=== PATIENT | male | born 1985 | race Caucasian/White ===

== ENCOUNTER 2017-01-05 16:59 | Emergency (ER) | payer SELFPAY ==
[~2017-01-05] VITALS: Ht 172.7 cm; Wt 82.0 kg
[2017-01-05 17:00] VITALS: BP 148/89; PULSE 67; RESP 15; TEMP 98.4; O2SAT 99
[2017-01-05] MEDS ORDERED: SODIUM CHLOR 0.9% 1000 ML INJ 1,000 ML IV SCH (17:16)
[2017-01-05 17:21] VITALS: BP 132/73; PULSE 60; RESP 18; TEMP 98.4; O2SAT 97
[2017-01-05] MEDS ORDERED: SODIUM CHLORIDE 0.9% FLUSH 10 ML FLUSH IV FLUSH PRN (17:30)
--- NOTE | 2017-01-05 18:08 | PD ---
HPI Chief Complaint: GI Complaint Time Seen by Provider: 18:06 Travel History International Travel<30 days: No Contact w/Intl Traveler<30days: No Traveled to known affect area: No History of Present Illness HPI Patient complains of bright blood per rectum ongoing times one week. Patient reports associated feeling tired. Patient states feels it got worse today. Denies any pain with this other than when he wipes without radiation. Patient reports similar in the past 3 or 4 years ago was seen here and evaluated but never followed up. Patient denies abdominal pain, fevers, back pain, loss or change in bladder, melena, nausea, vomiting, chest pain, or shortness of breath. Patient denies anything making this better or worse. PFSH Past Medical History Medical History: Denies Significant Hx Tetanus Vaccination: Unknown Social History Alcohol Use: Yes (occ) Tobacco Use: Yes (vape states non-tobacco) Substance Use: No Allergies-Medications (Allergen,Severity, Reaction): Coded Allergies: No Known Allergies (Unverified , 01/05/17) Reported Meds & Prescriptions Reported Meds & Active Scripts Active No Active Prescriptions or Reported Medications Review of Systems Except as stated in HPI: all other systems reviewed are Neg Physical Exam Narrative GENERAL: Well-developed, well nourished, in no acute distress, and non-ill appearing. SKIN: Focused skin assessment warm and dry. HEAD: Atraumatic. Normocephalic. EYES: Pupils equal and round. EOMI. No scleral icterus. No injection or drainage. ENT: No nasal bleeding or discharge. Mucous membranes pink and moist. NECK: Trachea midline. No JVD. Supple. No nuclear rigidity. CARDIOVASCULAR: Regular rate and rhythm. No murmur appreciated. RESPIRATORY: No accessory muscle use. No respiratory distress. Clear to auscultation. Breath sounds equal bilaterally. GASTROINTESTINAL: Abdomen soft, non-tender, nondistended, and no guarding. Hepatic and splenic margins not palpable. Normal bowel sounds 4. No pulsatile mass. Small external hemorrhoid noted at approximately 6 o'clock position. No fistulas are active bleeding noted. Exam was performed presence of staff Farrukh Laguerre at all times. MUSCULOSKELETAL: No obvious deformities. No clubbing. No cyanosis. No edema. Full range of motion. NEUROLOGICAL: Awake and alert. No obvious cranial nerve deficits. Motor grossly within normal limits. Normal speech. PSYCHIATRIC: Appropriate mood and affect; insight and judgment normal. Data Data Last Documented VS Vital Signs Date Time Temp Pulse Resp B/P Pulse Ox O2 Delivery O2 Flow Rate FiO2 01/05/17 19:13 66 18 128/71 99 Room Air 01/05/17 17:21 98.4 Orders Complete Blood Count With Diff (01/05/17 17:16) Comprehensive Metabolic Panel (01/05/17 17:16) Lipase (01/05/17 17:16) Prothrombin Time / Inr (Pt) (01/05/17 17:16) Act Partial Throm Time (Ptt) (01/05/17 17:16) Iv Access Insert/Monitor (01/05/17 17:16) Ecg Monitoring (01/05/17 17:16) Oximetry (01/05/17 17:16) Sodium Chlor 0.9% 1000 Ml Inj (Ns 1000 M (01/05/17 17:16) Sodium Chloride 0.9% Flush (Ns Flush) (01/05/17 17:30) Mandatory Outpatient Referral (01/05/17 19:01) Labs Laboratory Tests Test 01/05/17 17:55 White Blood Count 9.1 TH/MM3 Red Blood Count 5.50 MIL/MM3 Hemoglobin 16.0 GM/DL Hematocrit 45.7 % Mean Corpuscular Volume 83.2 FL Mean Corpuscular Hemoglobin 29.0 PG Mean Corpuscular Hemoglobin 34.9 % Concent Red Cell Distribution Width 13.6 % Platelet Count 209 TH/MM3 Mean Platelet Volume 8.0 FL Neutrophils (%) (Auto) 69.1 % Lymphocytes (%) (Auto) 21.5 % Monocytes (%) (Auto) 7.3 % Eosinophils (%) (Auto) 1.5 % Basophils (%) (Auto) 0.6 % Neutrophils # (Auto) 6.3 TH/MM3 Lymphocytes # (Auto) 2.0 TH/MM3 Monocytes # (Auto) 0.7 TH/MM3 Eosinophils # (Auto) 0.1 TH/MM3 Basophils # (Auto) 0.1 TH/MM3 CBC Comment DIFF FINAL Differential Comment Prothrombin Time 10.2 SEC Prothromb Time International 0.9 RATIO Ratio Activated Partial 27.3 SEC Thromboplast Time Sodium Level 138 MEQ/L Potassium Level 4.1 MEQ/L Chloride Level 105 MEQ/L Carbon Dioxide Level 28.5 MEQ/L Anion Gap 5 MEQ/L Blood Urea Nitrogen 8 MG/DL Creatinine 0.96 MG/DL Estimat Glomerular Filtration 93 ML/MIN Rate Random Glucose 87 MG/DL Calcium Level 8.9 MG/DL Total Bilirubin 1.3 MG/DL Aspartate Amino Transf 19 U/L (AST/SGOT) Alanine Aminotransferase 25 U/L (ALT/SGPT) Alkaline Phosphatase 67 U/L Total Protein 8.3 GM/DL Albumin 4.4 GM/DL Lipase 177 U/L MDM Medical Decision Making Medical Screen Exam Complete: Yes Emergency Medical Condition: Yes Differential Diagnosis GI bleed, anemia, hemorrhoids, hematochezia, other Narrative Course The patient appears stable and is in no distress. The patient is healthy and has no significant co-morbidities. There is no evidence of significant blood loss by history, exam, and evaluation. The patient therefore can be safely discharged home. Warnings were discussed with the patient such as, but not limited to, worsening of condition, increased bleeding, abdominal pains, dizzy with standing, or do passing out. The patient was also instructed to return as needed. The patient was instructed to follow up with gastroenterology. The patient agreed with plan of care and management. Patient in no obvious distress upon re-evaluation. All pertinent laboratory result(s) discussed with patient. Discussed patient with Dr. Villanueva prior to discharge, who is in agreement plan of care and disposition. Mandatory referral placed to GI. Any questions/concerns in reference to patient diagnosis /condition discussed and clarified prior to patient's discharge. Reinforced sheer importance of close follow up with patient's primary physician or primary care clinic and GI. Instructed patient to return to ED immediately, if symptoms return/worsen. Pt showed understanding of above instructions. Further instructions and recommendations were detailed in discharge paperwork. Pt ambulated without difficulty out of ED at discharge. Diagnosis Primary Impression: Bright red blood per rectum Patient Instructions: General Instructions, Rectal Bleeding (ED) Additional Instructions: Follow-up with your primary care physician or GI in 3-5 days for reevaluation. Use [id number] stool softeners. Follow instructed on the packaging. Do not strain when having a bowel movement. Drink plenty of non-caffeinated and nonalcoholic fluids. Return to the emergency department if symptoms get worse. Scripts No Active Prescriptions or Reported Meds Disposition: 01 DISCHARGE HOME Condition: Stable Lauro Schmitt Jan 05, 2017 18:08
[2017-01-05 18:24] LABS: AUTOMATED NEUTROPHIL # 6.3 TH/MM3 (1.8-7.7); BASOPHIL # 0.1 TH/MM3 (0-0.2); BASOPHIL % 0.6 % (0.0-2.0); EOSINOPHIL # 0.1 TH/MM3 (0-0.4); EOSINOPHIL % 1.5 % (0.0-4.0); HEMATOCRIT 45.7 % (39.0-51.0); HEMO FLAGS DIFF FINAL; LYMPH % 21.5 % (9.0-44.0); MEAN CELL VOLUME 83.2 FL (80.0-100.0); MEAN CORPUSCULAR HGB CONC 34.9 % (32.0-36.0); MONO % 7.3 % (0.0-8.0); NEUT % 69.1 % (16.0-70.0); PLATELET COUNT 209 TH/MM3 (150-450); RED CELL DISTRIBUTION WIDTH 13.6 % (11.6-17.2); WHITE BLOOD COUNT 9.1 TH/MM3 (4.0-11.0)
[2017-01-05 18:32] LABS: APTT (PATIENT) 27.3 SEC (24.3-30.1); INTERNATIONAL NORMALIZED RATIO 0.9 RATIO; PROTHROMBIN TIME - PATIENT 10.2 SEC (9.8-11.6)
[2017-01-05 18:35] LABS: ANION GAP 5 MEQ/L (5-15); AST (GOT) 19 U/L (15-37); BICARBONATE 28.5 MEQ/L (21.0-32.0); BLOOD UREA NITROGEN 8 MG/DL (7-18); CHLORIDE 105 MEQ/L (98-107); GLOMERULAR FILTRATION RATE 93 ML/MIN (>89); POTASSIUM 4.1 MEQ/L (3.5-5.1); SODIUM (NA) 138 MEQ/L (136-145)
[2017-01-05 18:40] LABS: ALKALINE PHOSPHATASE 67 U/L (45-117); ALT (GPT) 25 U/L (12-78); TOTAL BILIRUBIN ADULT 1.3 MG/DL (0.2-1.0)
[2017-01-05 19:13] VITALS: BP 128/71; PULSE 66; RESP 18; O2SAT 99
== END 2017-01-05 19:34 | disposition home or self-care (01) ==
LOC: NEPC 16:59
DX: K62.5 Hemorrhage of anus and rectum (principal); F17.290 Nicotine dependence, other tobacco product, uncomplicated
CPT/HCPCS: 80053; 83690; 85025; 85610; 85730; 96360; 99284; J7030

== ENCOUNTER 2017-05-24 21:26 | Observation (INO) | payer SELFPAY ==
[2017-05-24 21:34] VITALS: BP 122/76; PULSE 82; RESP 20; TEMP 98.6; O2SAT 98
[2017-05-24] MEDS ORDERED: SODIUM CHLOR 0.9% 1000 ML INJ 1,000 ML IV ONE (22:30)
[2017-05-24] MEDS ORDERED: ONDANSETRON HCL 4 MG/2 ML VIAL IV PUSH ONE (22:30)
[2017-05-24] MEDS ORDERED: PANTOPRAZOLE SODIUM 40 MG VIAL IV PUSH ONE (22:30)
[2017-05-24 22:47] LABS: AUTOMATED NEUTROPHIL # 4.8 TH/MM3 (1.8-7.7); BASOPHIL # 0.1 TH/MM3 (0-0.2); BASOPHIL % 0.7 % (0.0-2.0); EOSINOPHIL # 0.1 TH/MM3 (0-0.4); EOSINOPHIL % 1.3 % (0.0-4.0); HEMATOCRIT 42.5 % (39.0-51.0); HEMOGLOBIN 15.4 GM/DL (13.0-17.0); LYMPH % 32.3 % (9.0-44.0); LYMPHOCYTE # 2.6 TH/MM3 (1.0-4.8); MEAN CELL VOLUME 82.7 FL (80.0-100.0); MEAN CORPUSCULAR HEMOGLOBIN 29.9 PG (27.0-34.0); MEAN PLATELET VOLUME 7.7 FL (7.0-11.0); MONOCYTE # 0.5 TH/MM3 (0-0.9); NEUT % 59.7 % (16.0-70.0); PLATELET COUNT 228 TH/MM3 (150-450); RED BLOOD COUNT 5.14 MIL/MM3 (4.50-5.90); RED CELL DISTRIBUTION WIDTH 13.1 % (11.6-17.2)
[2017-05-24 22:50] LABS: MEAN CORPUSCULAR HGB CONC 36.2 % (32.0-36.0)
[2017-05-24 23:03] LABS: AST (GOT) 11 U/L (15-37); BICARBONATE 26.3 MEQ/L (21.0-32.0); BLOOD UREA NITROGEN 8 MG/DL (7-18); CALCIUM 8.4 MG/DL (8.5-10.1); CHLORIDE 106 MEQ/L (98-107); CREATININE 0.93 MG/DL (0.60-1.30); GLOMERULAR FILTRATION RATE 95 ML/MIN (>89); GLUCOSE,RANDOM 86 MG/DL (74-106); SODIUM (NA) 142 MEQ/L (136-145)
[2017-05-24 23:04] LABS: ALT (GPT) 18 U/L (12-78)
[2017-05-24 23:06] LABS: ALKALINE PHOSPHATASE 64 U/L (45-117); TOTAL BILIRUBIN ADULT 0.9 MG/DL (0.2-1.0); TOTAL PROTEIN 7.3 GM/DL (6.4-8.2)
[2017-05-24] MEDS ORDERED: MECLIZINE HCL 25 MG TAB PO ONE (23:15)
[2017-05-24 23:20] VITALS: BP_SYST 116; BP_SYST 123; BP_SYST 126; BP_SYST 132; BP_DIAS 65; BP_DIAS 74; BP_DIAS 77; BP_DIAS 80; PULSE 79; RESP 18; RESP 20; O2SAT 99
[2017-05-24 23:23] LABS: TROPONIN I LESS THAN 0.02 NG/ML (0.02-0.05)
--- NOTE | 2017-05-24 23:23 | PD ---
HPI Chief Complaint: GI Complaint Time Seen by Provider: 21:35 Travel History International Travel<30 days: No Contact w/Intl Traveler<30days: No Traveled to known affect area: No History of Present Illness HPI Patient is a 32-year-old male who was in [facility] he felt strange in his head and in his chest during the service he suddenly became very nauseous and started to vomit he is brought in by paramedics main complaint is nausea vomiting on my evaluation he describes how he had a headache and his chest hurt first and then the nausea came he also describes a spinning sensation worse with head movement. He denies any sore throat or upper respiratory infection like symptoms and he denies any earache. He has no cardiac history and he denies ingestion of any substances that could be causing any cardiac arrhythmias he is given a IV with liter fluid Protonix and Zofran and he has an EKG done by the nurse which shows a intermittent junctional rhythm at a rate of 55 his P waves dropout and then they return he is not orthostatic is not hypotensive and again he has no cardiac history this complaint was nausea vomiting after chest pain and headache and a spinning sensation nothing has relieved his symptoms movement of his head seems to exacerbate his symptoms PFSH Past Medical History Tetanus Vaccination: > 5 Years Influenza Vaccination: No Social History Alcohol Use: Yes (occ) Tobacco Use: Yes (vape states non-tobacco) Substance Use: No Allergies-Medications (Allergen,Severity, Reaction): Coded Allergies: No Known Allergies (Unverified Allergy, Unknown, 05/25/17) Reported Meds & Prescriptions Reported Meds & Active Scripts Active No Active Prescriptions or Reported Medications Review of Systems Except as stated in HPI: all other systems reviewed are Neg General / Constitutional: Positive: Fever, Chills HENT: Positive: Headaches Cardiovascular: Positive: Chest Pain or Discomfort Gastrointestinal: Positive: Nausea, Vomiting, Abdominal Pain Neurologic: Positive: Dizziness Physical Exam Narrative GENERAL: Patient appears to be very nauseous during my exam he is not diaphoretic though he is vomiting when I enter the room SKIN: Warm and dry. HEAD: Atraumatic. Normocephalic. EYES: Pupils equal and round. No scleral icterus. No injection or drainage. Positive for nystagmus ENT: No nasal bleeding or discharge. Mucous membranes pink and moist. NECK: Trachea midline. No JVD. CARDIOVASCULAR: Regular rate and rhythm. Bradycardic-- EKG shows junctional rhythm and then back into sinus at a rate of 55 RESPIRATORY: No accessory muscle use. Clear to auscultation. Breath sounds equal bilaterally. GASTROINTESTINAL: Abdomen soft, non-tender, nondistended. Hepatic and splenic margins not palpable. MUSCULOSKELETAL: Extremities without clubbing, cyanosis, or edema. No obvious deformities. NEUROLOGICAL: Awake and alert. No obvious cranial nerve deficits. Motor grossly within normal limits. Five out of 5 muscle strength in the arms and legs. Normal speech. PSYCHIATRIC: Appropriate mood and affect; insight and judgment normal. Data Data Last Documented VS Vital Signs Date Time Temp Pulse Resp B/P (MAP) Pulse Ox O2 Delivery O2 Flow Rate FiO2 05/25/17 00:52 97.6 57 16 102/57 (72) 96 Room Air Orders Orders Complete Blood Count With Diff (05/24/17 22:20) Comprehensive Metabolic Panel (05/24/17 22:20) Pantoprazole Inj (Protonix Inj) (05/24/17 22:30) Ondansetron Inj (Zofran Inj) (05/24/17 22:30) Sodium Chlor 0.9% 1000 Ml Inj (Ns 1000 M (05/24/17 22:30) Drug Screen, Random Urine (05/24/17 23:03) Orthostatic Vital Signs (05/24/17 23:03) Troponin I (05/24/17 22:20) Meclizine (Antivert) (05/24/17 23:15) Metoclopramide Inj (Reglan Inj) (05/24/17 23:30) Chest, Pa & Lat (05/25/17 ) Place In Observation (05/25/17 ) Vital Signs (Adult) Q4H (05/25/17 01:15) Activity Oob With Assistance (05/25/17 01:15) Diet Heart Healthy (05/25/17 Breakfast) Sodium Chloride 0.9% Flush (Ns Flush) (05/25/17 01:15) Sodium Chloride 0.9% Flush (Ns Flush) (05/25/17 09:00) Acetaminophen (Tylenol) (05/25/17 01:15) Ondansetron Inj (Zofran Inj) (05/25/17 01:15) Basic Metabolic Panel (Bmp) (05/26/17 06:00) Complete Blood Count With Diff (05/26/17 06:00) Creatine Kinase (Cpk) (05/25/17 04:20) Creatine Kinase (Cpk) (05/25/17 10:20) Troponin I (05/25/17 04:20) Troponin I (05/25/17 10:20) Electrocardiogram (05/25/17 04:20) Electrocardiogram (05/25/17 10:20) Naloxone Inj (Narcan Inj) (05/25/17 01:15) Docusate Sodium-Senna (Roxana-Colace) (05/25/17 09:00) Magnesium Hydroxide Liq (Milk Of Magnesi (05/25/17 01:15) Sennosides (Senokot) (05/25/17 01:15) Bisacodyl Supp (Dulcolax Supp) (05/25/17 01:15) Lactulose Liq (Lactulose Liq) (05/25/17 01:15) Admit Order (Ed Use Only) (05/25/17 01:44) CKMB (05/25/17 03:59) CKMB% (05/25/17 03:59) CKMB (05/25/17 10:33) CKMB% (05/25/17 10:33) Labs Laboratory Tests Test 05/24/17 22:20 05/25/17 00:12 White Blood Count 8.0 TH/MM3 Red Blood Count 5.14 MIL/MM3 Hemoglobin 15.4 GM/DL Hematocrit 42.5 % Mean Corpuscular Volume 82.7 FL Mean Corpuscular Hemoglobin 29.9 PG Mean Corpuscular Hemoglobin Concent 36.2 % Red Cell Distribution Width 13.1 % Platelet Count 228 TH/MM3 Mean Platelet Volume 7.7 FL Neutrophils (%) (Auto) 59.7 % Lymphocytes (%) (Auto) 32.3 % Monocytes (%) (Auto) 6.0 % Eosinophils (%) (Auto) 1.3 % Basophils (%) (Auto) 0.7 % Neutrophils # (Auto) 4.8 TH/MM3 Lymphocytes # (Auto) 2.6 TH/MM3 Monocytes # (Auto) 0.5 TH/MM3 Eosinophils # (Auto) 0.1 TH/MM3 Basophils # (Auto) 0.1 TH/MM3 CBC Comment AUTO DIFF Differential Comment AUTO DIFF CONFIRMED Hypersegmented Polys 3+ Platelet Estimate NORMAL Platelet Morphology Comment NORMAL Red Cell Morphology Comment NORMAL Blood Urea Nitrogen 8 MG/DL Creatinine 0.93 MG/DL Random Glucose 86 MG/DL Total Protein 7.3 GM/DL Albumin 4.0 GM/DL Calcium Level 8.4 MG/DL Alkaline Phosphatase 64 U/L Aspartate Amino Transf (AST/SGOT) 11 U/L Alanine Aminotransferase (ALT/SGPT) 18 U/L Total Bilirubin 0.9 MG/DL Sodium Level 142 MEQ/L Potassium Level 3.5 MEQ/L Chloride Level 106 MEQ/L Carbon Dioxide Level 26.3 MEQ/L Anion Gap 10 MEQ/L Estimat Glomerular Filtration Rate 95 ML/MIN Troponin I LESS THAN 0.02 NG/ML Urine Opiates Screen NEG Urine Barbiturates Screen NEG Urine Amphetamines Screen NEG Urine Benzodiazepines Screen NEG Urine Cocaine Screen NEG Urine Cannabinoids Screen NEG MDM Medical Decision Making Medical Screen Exam Complete: Yes Emergency Medical Condition: Yes Differential Diagnosis Patient has vertigo possible benign positional vertigo secondary to in the imbalance in the lymph in his semicircle canals of his ears versus a virus versus a cardiac ischemia causing a hypotensive dizziness versus gastroenteritis with excessive vomiting stimulating his vagus nerve bradycardia versus other Narrative Course Asians EKG is rate of 55 it appears to be junctional and then has normal sinus rhythm he is not have any episodes of hypotension however she does have a dizzy feeling spinning sensation feeling and nystagmus is elicited on his ocular exam given the liter fluid and Zofran Protonix and Reglan and he is still feeling nauseous labs are sent fluid resuscitate and he will be evaluated for possible admission Diagnosis Primary Impression: Dizziness Additional Impression: Bradycardia Admitting Information Admitting Physician Requests: Observation Scripts No Active Prescriptions or Reported Meds Sami Salgado MD May 24, 2017 23:23
[2017-05-24 23:28] LABS: HYPERSEGMENTED POLYS 3+ (NORMAL)
[2017-05-24] MEDS ORDERED: METOCLOPRAMIDE INJ 10 MG in SODIUM CHLORIDE 0.9% INJ 50 ML IV ONE (23:30)
[2017-05-25] VITALS (24 sets, daily range): BP systolic 102–138; BP diastolic 57–76; PULSE 46–97; RESP 14–16; TEMP 97.5–98.8; O2SAT 95–100
--- NOTE | 2017-05-25 00:57 | RADRPT ---
EXAM DATE/TIME: 05/25/2017 00:18 [place] COMPARISON: No previous studies available for comparison. INDICATIONS : Nausea and vomiting x 1 day MEDICAL HISTORY : None. SURGICAL HISTORY : ACL Repair, Right ENCOUNTER: Initial ACUITY: 1 day PAIN SCORE: 7/10 LOCATION: Bilateral chest FINDINGS: PA and lateral views of the chest. The lungs are clear. Cardiomediastinal silhouette within normal li mits. No evidence of pleural effusion or pneumothorax. CONCLUSION: No acute cardiopulmonary disease identified. Adalberto Diallo MD on May 25, 2017 at 0:55 Board Certified Radiologist. This report was verified electronically.
[2017-05-25] MEDS ORDERED: ONDANSETRON HCL 4 MG/2 ML VIAL IVP PRN (01:15)
[2017-05-25] MEDS ORDERED: ACETAMINOPHEN 325 MG TAB PO PRN (01:15)
[2017-05-25] MEDS ORDERED: SENNOSIDES 8.6 MG TAB PO PRN (01:15)
[2017-05-25] MEDS ORDERED: SODIUM CHLORIDE 0.9% FLUSH 10 ML FLUSH IV FLUSH PRN (01:15)
[2017-05-25] MEDS ORDERED: LACTULOSE SYRUP 20 GM/30 ML CUP PO PRN (01:15)
[2017-05-25] MEDS ORDERED: MAGNESIUM HYDROXIDE SUSP 30 ML CUP PO PRN (01:15)
[2017-05-25] MEDS ORDERED: BISACODYL 10 MG SUPP RECTAL PRN (01:15)
[2017-05-25] MEDS ORDERED: NALOXONE HCL 0.4 MG/ML AMP IV PUSH PRN (01:15)
[2017-05-25 05:57] LABS: TROPONIN I LESS THAN 0.02 NG/ML (0.02-0.05)
[2017-05-25] MEDS: DOCUSATE SODIUM 50 MG/SENNA 8.6 MG TAB PO SCH ×2 (09:34→21:00)
[2017-05-25] MEDS: SODIUM CHLORIDE 0.9% FLUSH 10 ML FLUSH IV FLUSH SCH ×2 (09:35→21:00)
--- NOTE | 2017-05-25 10:42 | PD.CONS ---
HPI Consult Requested By Primary Care Physician No Primary Care Physician History of Present Illness 32-year-old male brought into the ER with nauseous and vomiting consulted to Cardiology due to bradycardia. Symptoms started [place] being in [place]. Nausea was associated with vertigo. He has no cardiac history and he denies ingestion of any substances that could be causing any cardiac arrhythmias, very active at baseline. ER EKG shows sinus bradycardia, no acute ST changes or prolonged intervals. Review of Systems Consitutional: DENIES: Fatigue, Fever, Chills, Weight gain, Weight loss Eyes: DENIES: Amaurosis Fugax, Change in vision HEENT: COMPLAINS OF: Lightheadedness, DENIES: Change in hearing Respiratory: DENIES: See HPI, Cough, Snoring, Shortness of breath, Wheezing, Sputum production Cardiovascular: DENIES: See HPI, Chest pain, Palpitations, Syncope, Tachycardia Gastrointestinal: COMPLAINS OF: Nausea, Vomiting, DENIES: Change in bowel habits, Reflux, Bloody stools, Melena Genitourinary: DENIES: Urinary incontinence, Difficulty voiding Integumentary: DENIES: Rash Musculoskeletal: DENIES: Joint pain, Muscle pain, Limited range of motion, Back pain Psychiatric: DENIES: Anxiety, Depression, Sleep disturbances Hematologic: DENIES: Bruising tendencies, Bleeding tendencies Past Family Social History Allergies: Coded Allergies: No Known Allergies (Unverified Allergy, Unknown, 05/25/17) Past Medical History None Past Surgical History None Reported Medications Reported Meds & Active Scripts Active No Active Prescriptions or Reported Medications Active Ordered Medications Current Medications Medications (Trade) Dose Ordered Sig/[place] Route Start Time Stop Time Status Last Admin (NS Flush) 2 ml UNSCH PRN IV FLUSH 05/25/17 01:15 (NS Flush) 2 ml BID IV FLUSH 05/25/17 09:00 05/25/17 09:35 (Tylenol) 650 mg Q4H PRN PO 05/25/17 01:15 05/25/17 03:22 (Zofran Inj) 4 mg Q6H PRN IVP 05/25/17 01:15 (Narcan Inj) 0.4 mg UNSCH PRN IV PUSH 05/25/17 01:15 (Roxana-Colace) 1 tab BID PO 05/25/17 09:00 05/25/17 09:34 (Milk Of Magnesia Liq) 30 ml Q12H PRN PO 05/25/17 01:15 (Senokot) 17.2 mg Q12H PRN PO 05/25/17 01:15 (Dulcolax Supp) 10 mg DAILY PRN RECTAL 05/25/17 01:15 (Lactulose Liq) 30 ml DAILY PRN PO 05/25/17 01:15 (Pneumovax-23 Inj) 25 mcg ONCE ONCE IM 05/26/17 10:00 05/26/17 10:01 (Flu (Quadrivalent) Vaccine Inj) 0.5 ml ONCE ONCE IM 05/26/17 10:00 05/26/17 10:01 Family History Father- Heart murmur Social History No illicit drug use No Tobacco use No Alcohol use Physical Exam Vital Signs Vital Signs Date Time Temp Pulse Resp B/P (MAP) Pulse Ox O2 Delivery O2 Flow Rate FiO2 05/25/17 09:00 85 05/25/17 08:00 87 05/25/17 08:00 97.9 87 16 122/76 (91) 96 05/25/17 07:00 67 05/25/17 06:00 55 05/25/17 05:00 49 05/25/17 04:00 54 05/25/17 03:06 46 05/25/17 03:00 68 05/25/17 03:00 97.5 75 16 119/67 (84) 96 05/25/17 02:38 52 14 110/63 (79) 100 Room Air 05/25/17 00:52 97.6 57 16 102/57 (72) 96 Room Air 05/24/17 23:20 51 18 116/65 (82) 77 20 123/74 (90) 74 20 126/77 (93) 05/24/17 23:20 79 20 132/80 (97) 99 Room Air 05/24/17 21:34 98.6 82 20 122/76 (91) 98 Laboratory Laboratory Tests Test 05/24/17 22:20 05/25/17 00:12 05/25/17 03:59 White Blood Count 8.0 Red Blood Count 5.14 Hemoglobin 15.4 Hematocrit 42.5 Mean Corpuscular Volume 82.7 Mean Corpuscular Hemoglobin 29.9 Mean Corpuscular Hemoglobin Concent 36.2 Red Cell Distribution Width 13.1 Platelet Count 228 Mean Platelet Volume 7.7 Neutrophils (%) (Auto) 59.7 Lymphocytes (%) (Auto) 32.3 Monocytes (%) (Auto) 6.0 Eosinophils (%) (Auto) 1.3 Basophils (%) (Auto) 0.7 Neutrophils # (Auto) 4.8 Lymphocytes # (Auto) 2.6 Monocytes # (Auto) 0.5 Eosinophils # (Auto) 0.1 Basophils # (Auto) 0.1 CBC Comment AUTO DIFF Differential Comment AUTO DIFF CONFIRMED Hypersegmented Polys 3+ Platelet Estimate NORMAL Platelet Morphology Comment NORMAL Red Cell Morphology Comment NORMAL Blood Urea Nitrogen 8 Creatinine 0.93 Random Glucose 86 Total Protein 7.3 Albumin 4.0 Calcium Level 8.4 Alkaline Phosphatase 64 Aspartate Amino Transf (AST/SGOT) 11 Alanine Aminotransferase (ALT/SGPT) 18 Total Bilirubin 0.9 Sodium Level 142 Potassium Level 3.5 Chloride Level 106 Carbon Dioxide Level 26.3 Anion Gap 10 Estimat Glomerular Filtration Rate 95 Troponin I LESS THAN 0.02 LESS THAN 0.02 Urine Opiates Screen NEG Urine Barbiturates Screen NEG Urine Amphetamines Screen NEG Urine Benzodiazepines Screen NEG Urine Cocaine Screen NEG Urine Cannabinoids Screen NEG Total Creatine Kinase 374 Creatine Kinase MB 1.1 Creatine Kinase MB % 0.3 Result Diagram: 05/24/17221905/24/172219 Assessment and Plan Problem List: (1) Bradycardia ICD Codes: R00.1 - Bradycardia, unspecified Status: Acute Plan: 32 y/o M with no cardiac medical hx consulted with bradycardia in the setting of nausea, vomiting and dizziness. ?Vasovagal. EKG shows sinus bradycardia and no evidence of tachy or bradyarrhythmias, AV blocks. Cardiac enzymes negative and toxicology screen unremarkable. Currently reports dizziness and headache NO CV complaints. EKG repeated by la Sinus Rhythm, Normal. Recommendations: 1.Cont medical management per primary team 2. F/U Echocardiogram 3. 24Hr Holter upon discharge 4. Avoid electrolytes abnormalities 5. Cont telemetry monitoring Thank you for the opportunity to participate in the care of this patient Will be available on a PRN basis for an questions or concerns. (2) Bright red blood per rectum ICD Codes: K62.5 - Hemorrhage of anus and rectum Status: Acute (3) Dizziness ICD Codes: R42 - Dizziness and giddiness Status: Acute Alejo Ortega MD May 25, 2017 10:42
[2017-05-25 11:43] LABS: TROPONIN I LESS THAN 0.02 NG/ML (0.02-0.05)
--- NOTE | 2017-05-25 11:44 | HHI.HP ---
[facility] No Primary Care Physician Admission Diagnosis bradycardia Diagnoses: (1) Bradycardia (2) Gastroenteritis (3) Gastroenteritis, non-infectious Chief Complaint: Nausea and vomiting Travel History International Travel<30 Days: No Contact w/Intl Traveler <30 Da: No Traveled to Known Affected Are: No History of Present Illness 32 year-old male without any significant past medical history was brought in yesterday from discharge for evaluation of worsening symptoms of nausea and vomiting associated with dizziness, shortness of breath. Patient was noted to have low heart rate however denies any chest pain. States, 3-4 days ago he had episode of diarrhea with noticeable blood which resolved. He also noted decreased appetite 24 hours prior to the onset of emesis. Review of Systems Except as stated in HPI: all other systems reviewed are Neg Past Family Social History Past Medical History No significant PMH Past Surgical History Right knee surgery Cyst removed Reported Medications No currently on any medication Allergies: Coded Allergies: No Known Allergies (Unverified Allergy, Unknown, 05/25/17) Family History Mother from complication from Colon Cancer Father with ESRD on HD; HTN Social History Alcohol Use: Yes (occ) Tobacco Use: Yes (vape states non-tobacco) Substance Use: No Physical Exam Vital Signs Vital Signs Date Time Temp Pulse Resp B/P (MAP) Pulse Ox O2 Delivery O2 Flow Rate FiO2 05/25/17 09:00 85 05/25/17 08:00 87 05/25/17 08:00 97.9 87 16 122/76 (91) 96 05/25/17 07:00 67 05/25/17 06:00 55 05/25/17 05:00 49 05/25/17 04:00 54 05/25/17 03:06 46 05/25/17 03:00 68 05/25/17 03:00 97.5 75 16 119/67 (84) 96 05/25/17 02:38 52 14 110/63 (79) 100 Room Air 05/25/17 00:52 97.6 57 16 102/57 (72) 96 Room Air 05/24/17 23:20 51 18 116/65 (82) 77 20 123/74 (90) 74 20 126/77 (93) 05/24/17 23:20 79 20 132/80 (97) 99 Room Air 05/24/17 21:34 98.6 82 20 122/76 (91) 98 Physical Exam GENERAL: This is a well-nourished, well-developed patient, in no apparent distress. SKIN: No rashes, ecchymoses or lesions. Cool and dry. HEAD: Atraumatic. Normocephalic. No temporal or scalp tenderness. EYES: Pupils equal round and reactive. Extraocular motions intact. No scleral icterus. No injection or drainage. ENT: Nose without bleeding, purulent drainage or septal hematoma. Throat without erythema, tonsillar hypertrophy or exudate. Uvula midline. Airway patent. NECK: Trachea midline. No JVD or lymphadenopathy. Supple, nontender, no meningeal signs. CARDIOVASCULAR: Regular rate and rhythm without murmurs, gallops, or rubs. RESPIRATORY: Clear to auscultation. Breath sounds equal bilaterally. No wheezes , rales, or rhonchi. GASTROINTESTINAL: Abdomen soft, non-tender, nondistended. No hepato-splenomegaly , or palpable masses. No guarding. MUSCULOSKELETAL: Extremities without clubbing, cyanosis, or edema. No joint tenderness, effusion, or edema noted. No calf tenderness. Negative Homans sign bilaterally. NEUROLOGICAL: Awake and alert. Cranial nerves II through XII intact. Motor and sensory grossly within normal limits. Five out of 5 muscle strength in all muscle groups. Normal speech. Laboratory Laboratory Tests Test 05/24/17 22:20 05/25/17 00:12 05/25/17 03:59 05/25/17 10:33 White Blood Count 8.0 Red Blood Count 5.14 Hemoglobin 15.4 Hematocrit 42.5 Mean Corpuscular Volume 82.7 Mean Corpuscular Hemoglobin 29.9 Mean Corpuscular Hemoglobin Concent 36.2 Red Cell Distribution Width 13.1 Platelet Count 228 Mean Platelet Volume 7.7 Neutrophils (%) (Auto) 59.7 Lymphocytes (%) (Auto) 32.3 Monocytes (%) (Auto) 6.0 Eosinophils (%) (Auto) 1.3 Basophils (%) (Auto) 0.7 Neutrophils # (Auto) 4.8 Lymphocytes # (Auto) 2.6 Monocytes # (Auto) 0.5 Eosinophils # (Auto) 0.1 Basophils # (Auto) 0.1 CBC Comment AUTO DIFF Differential Comment AUTO DIFF CONFIRMED Hypersegmented Polys 3+ Platelet Estimate NORMAL Platelet Morphology Comment NORMAL Red Cell Morphology Comment NORMAL Blood Urea Nitrogen 8 Creatinine 0.93 Random Glucose 86 Total Protein 7.3 Albumin 4.0 Calcium Level 8.4 Alkaline Phosphatase 64 Aspartate Amino Transf (AST/SGOT) 11 Alanine Aminotransferase (ALT/SGPT) 18 Total Bilirubin 0.9 Sodium Level 142 Potassium Level 3.5 Chloride Level 106 Carbon Dioxide Level 26.3 Anion Gap 10 Estimat Glomerular Filtration Rate 95 Troponin I LESS THAN 0.02 LESS THAN 0.02 Urine Opiates Screen NEG Urine Barbiturates Screen NEG Urine Amphetamines Screen NEG Urine Benzodiazepines Screen NEG Urine Cocaine Screen NEG Urine Cannabinoids Screen NEG Total Creatine Kinase 374 Creatine Kinase MB 1.1 Creatine Kinase MB % 0.3 Result Diagram: 05/24/17 2220 05/24/17 2220 Imaging Last Impressions Chest X-Ray 05/25/17 0000 Signed Impressions: Service Date/Time: Thursday, May 25, 2017 00:18 - CONCLUSION: No acute cardiopulmonary disease identified. Adalberto Diallo MD Septic Shock Reassessment Septic shock perfusion: reassessment completed Caprini VTE Risk Assessment Caprini VTE Risk Assessment: No/Low Risk (score <= 1) Caprini Risk Assessment Model Point Value = 1 Point Value = 2 Point Value = 3 Point Value = 5 Age 41-60 Minor surgery BMI > 25 kg/m2 Swollen legs Varicose veins or History of unexplained or recurrent spontaneous Oral contraceptives or hormone replacement Sepsis (< 1 month) Serious lung disease, including pneumonia (< 1 month) Abnormal pulmonary function Acute myocardial infarction Congestive heart failure (< 1 month) History of inflammatory bowel disease Medical patient at bed rest Age 61-74 Arthroscopic surgery Major open surgery (> 45 min) Laparoscopic surgery (> 45 min) Malignancy Confined to bed (> 72 hours) Immobilizing plaster cast Central venous access Age >= 75 History of VTE Family history of VTE Factor V Leiden Prothrombin [id number] Lupus anticoagulant Anticardiolipin antibodies Elevated serum homocysteine Heparin-induced thrombocytopenia Other congenital or acquired thrombophilia Stroke (< 1 month) Elective arthroplasty Hip, pelvis, or leg fracture Acute spinal cord injury (< 1 month) Prophylaxis Regimen Total Risk Factor Score Risk Level Prophylaxis Regimen 0-1 Low Early ambulation 2 Moderate Order ONE of the following: *Sequential Compression Device (SCD) *Heparin 5000 units SQ BID 3-4 Higher Order ONE of the following medications: *Heparin 5000 units SQ TID *Enoxaparin/Lovenox 40 mg SQ daily (WT < 150 kg, CrCl > 30 mL/min) *Enoxaparin/Lovenox 30 mg SQ daily (WT < 150 kg, CrCl > 10-29 mL/min) *Enoxaparin/Lovenox 30 mg SQ BID (WT < 150 kg, CrCl > 30 mL/min) AND/OR *Sequential Compression Device (SCD) 5 or more Highest Order ONE of the following medications: *Heparin 5000 units SQ TID (Preferred with Epidurals) *Enoxaparin/Lovenox 40 mg SQ daily (WT < 150 kg, CrCl > 30 mL/min) *Enoxaparin/Lovenox 30 mg SQ daily (WT < 150 kg, CrCl > 10-29 mL/min) *Enoxaparin/Lovenox 30 mg SQ BID (WT < 150 kg, CrCl > 30 mL/min) AND *Sequential Compression Device (SCD) Assessment and Plan Problem List: (1) Bradycardia ICD Code: R00.1 - Bradycardia, unspecified Status: Acute (2) Gastroenteritis, non-infectious ICD Code: K52.9 - Noninfective gastroenteritis and colitis, unspecified Assessment and Plan 32 year-old male with Symptomatic bradycardia Maybe secondary to gastroenteritis UDS negative, no electrolyte abnormality However will consult cardiology Check 2-D echo, [employer] commercial Gastroenteritis, noninfectious Conservative management with IV fluid hydration, antiemetic Bright red blood per rectum Likely secondary to hemorrhoid, conservative treatment DVT prophylaxis: Bilateral SCDs Paul Haddad MD May 25, 2017 11:44
[2017-05-25] MEDS: SODIUM CHLOR 0.9% 1000 ML INJ 1,000 ML IV SCH (14:19)
--- NOTE | 2017-05-25 16:13 | ECHRPT ---
Indication: cardiomyopathy CONCLUSIONS The left ventricular systolic function is normal with an estimated ejection fraction in the range of 60-65%. Normal left ventricular size. Wall thickness is normal. No regional wall motion abnormalities are present. There is trace tricuspid valve regurgitation. Normal estimated pulmonary pressures. BP: 119 / 67 HR: 75 Rhythm: Sinus MEASUREMENTS (Male / Female) Normal Values Technical Quality:Excellent 2D ECHO LV Diastolic Diameter PLAX 4.1 cm 4.2 - 5.9 / 3.9 - 5.3 cm LV Systolic Diameter PLAX 2.6 cm IVS Diastolic Thickness 1.0 cm 0.6 - 1.0 / 0.6 - 0.9 cm LVPW Diastolic Thickness 1.0 cm 0.6 - 1.0 / 0.6 - 0.9 cm LV Relative Wall Thickness 0.5 RV Internal Dim ED PLAX 2.8 cm LVOT Diameter 1.9 cm LA Systolic Diameter LX 2.9 cm 3.0 - 4.0 / 2.7 - 3.8 cm LV Ejection Fraction MOD 4C 66.3 % LV Cardiac Index MOD 4C 2217.3 cm/minm LV Ejection Fraction 4C AL 67.6 % LV Cardiac Index 4C AL 2328.9 cm/minm M-MODE Aortic Root Diameter MM 2.3 cm AV Cusp Separation MM 2.0 cm DOPPLER AV Peak Velocity 83.1 cm/s AV Peak Gradient 2.8 mmHg LVOT Peak Velocity 143.0 cm/s LVOT Peak Gradient 8.2 mmHg AV Area Cont Eq pk 4.9 cm MV Area PHT 2.6 cm Mitral E Point Velocity 86.9 cm/s Mitral A Point Velocity 54.8 cm/s Mitral E to A Ratio 1.6 LV E' Lateral Velocity 13.5 cm/s Mitral E to LV E' Lateral Ratio 6.4 TR Peak Velocity 191.0 cm/s TR Peak Gradient 14.6 mmHg Right Atrial Pressure 10.0 mmHg Pulmonary Artery Systolic Pressu 24.6 mmHg Right Ventricular Systolic Press 24.6 mmHg PV Peak Velocity 122.0 cm/s PV Peak Gradient 6.0 mmHg FINDINGS LEFT VENTRICLE The left ventricular systolic function is normal with an estimated ejection fraction in the range of 60-65%. Normal left ventricular size. Wall thickness is normal. No regional wall motion abnormalities are present. RIGHT VENTRICLE Normal right ventricular size and systolic function. LEFT ATRIUM The left atrial size is normal. RIGHT ATRIUM The right atrial size is normal. ATRIAL SEPTUM Normal atrial septal thickness without atrial level shunting by limited color doppler interrogation. AORTA The aortic root and proximal ascending aorta are normal in size on limited imaging. MITRAL VALVE Structurally normal mitral valve. No mitral valve stenosis or regurgitation. AORTIC VALVE Trileaflet aortic valve. No aortic valve stenosis or regurgitation. TRICUSPID VALVE Structurally normal tricuspid valve. There is trace tricuspid valve regurgitation. Normal estimated pulmonary pressures. PULMONARY VALVE No pulmonary valve regurgitation or stenosis. VESSELS The inferior vena cava is normal in size. PERICARDIUM No pericardial effusion. Alejo Ortega MD (Electronically Signed) Final Date:25 May 2017 16:11
--- NOTE | 2017-05-25 21:03 | EKG ---
Date Performed: 05/25/2017 Time Performed: 11:19:06 PTAGE: 32 years EKG: Sinus rhythm Normal ECG PREVIOUS TRACING : 05/25/2017 04.26 Compared to prior tracing no significant change DOCTOR: Ras Morton Interpretating Date/Time 05/25/2017 21:02:44
--- NOTE | 2017-05-25 21:49 | EKG ---
Date Performed: 05/25/2017 Time Performed: 04:26:08 PTAGE: 32 years EKG: Sinus bradycardia Normal ECG except for rate PREVIOUS TRACING : 05/24/2017 22.57 Compared to prior tracing no significant change DOCTOR: Ras Morton Interpretating Date/Time 05/25/2017 21:49:01
--- NOTE | 2017-05-25 22:14 | EKG ---
Date Performed: 05/24/2017 Time Performed: 22:57:55 PTAGE: 32 years EKG: SINUS BRADYCARDIA WITH SINUS ARRHYTHMIA BORDERLINE ECG PREVIOUS TRACING : 05/22/2015 16.23 Compared to prior tracing no significant change DOCTOR: Ras Morton Interpretating Date/Time 05/25/2017 22:12:57
[2017-05-26] VITALS (10 sets, daily range): BP systolic 122–123; BP diastolic 65–68; PULSE 49–98; RESP 15–18; TEMP 98–98.6; O2SAT 97
[2017-05-26] MEDS: SODIUM CHLOR 0.9% 1000 ML INJ 1,000 ML IV SCH (02:20)
[2017-05-26 05:05] LABS: AUTOMATED NEUTROPHIL # 4.4 TH/MM3 (1.8-7.7); BASOPHIL % 0.5 % (0.0-2.0); EOSINOPHIL # 0.2 TH/MM3 (0-0.4); EOSINOPHIL % 2.7 % (0.0-4.0); LYMPH % 34.9 % (9.0-44.0); LYMPHOCYTE # 2.8 TH/MM3 (1.0-4.8); MEAN CELL VOLUME 83.3 FL (80.0-100.0); MEAN CORPUSCULAR HGB CONC 34.8 % (32.0-36.0); MEAN PLATELET VOLUME 6.9 FL (7.0-11.0); MONO % 6.9 % (0.0-8.0); MONOCYTE # 0.6 TH/MM3 (0-0.9); PLATELET COUNT 201 TH/MM3 (150-450); RED BLOOD COUNT 5.17 MIL/MM3 (4.50-5.90); RED CELL DISTRIBUTION WIDTH 13.3 % (11.6-17.2); WHITE BLOOD COUNT 7.9 TH/MM3 (4.0-11.0)
[2017-05-26 05:33] LABS: BICARBONATE 29.8 MEQ/L (21.0-32.0); CALCIUM 8.4 MG/DL (8.5-10.1); CREATININE 0.97 MG/DL (0.60-1.30)
[2017-05-26] MEDS: DOCUSATE SODIUM 50 MG/SENNA 8.6 MG TAB PO SCH (09:00)
[2017-05-26] MEDS: SODIUM CHLORIDE 0.9% FLUSH 10 ML FLUSH IV FLUSH SCH (09:11)
[2017-05-26] MEDS ORDERED: PNEUMOCOCCAL POLYVALENT INJ 25 MCG/0.5 ML SYR IM ONE (10:00)
[2017-05-26] MEDS ORDERED: INFLUENZA VIRUS VACCINE (QUADRIVALENT) 0.5 ML SYR IM ONE (10:00)
--- NOTE | 2017-05-26 10:21 | HHI.PR ---
Subjective Remarks Follow-up gastroenteritis/bradycardia 05/26/17-patient seen and examined, reports resolution of symptoms of nausea and emesis. Heart rate stable. No acute event overnight. 2-D echo with EF of 60% Objective Vitals Vital Signs Date Time Temp Pulse Resp B/P (MAP) Pulse Ox O2 Delivery O2 Flow Rate FiO2 05/26/17 08:00 74 05/26/17 08:00 98.6 77 18 122/68 (86) 97 05/26/17 07:00 66 05/26/17 06:00 98 05/26/17 05:00 62 05/26/17 04:00 56 05/26/17 03:00 98.0 70 15 123/65 (84) 97 05/26/17 03:00 52 05/26/17 02:00 49 05/26/17 01:00 53 05/26/17 00:00 57 05/25/17 23:00 98.1 70 16 118/62 (80) 97 05/25/17 23:00 62 05/25/17 22:00 73 05/25/17 21:00 66 05/25/17 20:00 79 05/25/17 20:00 98.5 70 16 136/76 (96) 98 05/25/17 19:00 70 05/25/17 18:03 97 05/25/17 17:00 70 05/25/17 16:00 67 05/25/17 16:00 97.8 73 16 121/65 (83) 95 05/25/17 15:00 89 05/25/17 14:00 65 05/25/17 13:00 61 05/25/17 12:00 61 05/25/17 11:00 98.8 66 16 138/68 (91) 95 I/O 05/25/17 05/25/17 05/25/17 05/26/17 05/26/17 05/26/17 07:00 15:00 23:00 07:00 15:00 23:00 Intake Total 1532 ml 1200 ml 2200 ml Output Total 150 ml 2200 ml 1525 ml Balance 1382 ml -1000 ml 675 ml Intake Oral 480 ml 1200 ml 1200 ml IV Total 1052 ml 1000 ml Output Urine Total 150 ml 2200 ml 1525 ml # Voids 1 # Bowel Movements 0 0 0 Result Diagram: 05/26/17 0434 05/26/17 0434 Imaging Last Impressions Chest X-Ray 05/25/17 0000 Signed Impressions: Service Date/Time: Thursday, May 25, 2017 00:18 - CONCLUSION: No acute cardiopulmonary disease identified. Adalberto Diallo MD Objective Remarks GENERAL: NAD SKIN: Warm and dry. HEAD: Normocephalic. EYES: No scleral icterus. No injection or drainage. NECK: Supple, trachea midline. No JVD or lymphadenopathy. CARDIOVASCULAR: Regular rate and rhythm without murmurs, gallops, or rubs. RESPIRATORY: Breath sounds equal bilaterally. No accessory muscle use. GASTROINTESTINAL: Abdomen soft, non-tender, nondistended. MUSCULOSKELETAL: No cyanosis, or edema. BACK: Nontender without obvious deformity. No CVA tenderness. A/P Problem List: (1) Bradycardia ICD Code: R00.1 - Bradycardia, unspecified Status: Resolved (2) Gastroenteritis, non-infectious ICD Code: K52.9 - Noninfective gastroenteritis and colitis, unspecified Status: Resolved Assessment and Plan 32 year-old male with Symptomatic bradycardia-resolved Maybe secondary to gastroenteritis UDS negative, no electrolyte abnormality Appreciate input from cardiology Patient is declining Holter monitoring upon discharge 2-D echo with EF 60%, collar sewer Gastroenteritis, noninfectious-resolved Conservative management with IV fluid hydration, antiemetic Bright red blood per rectum Likely secondary to hemorrhoid, conservative treatment DVT prophylaxis: Bilateral SCDs Discharge Planning Discharge patient to home Condition on discharge: Improved Regular Diet as tolerated Ad Mishel activity Rx written:None Follow-up with primary care physician in 1 week Problem Qualifiers (1) Gastroenteritis, non-infectious: Qualified Codes: K52.9 - Noninfective gastroenteritis and colitis, unspecified Paul Haddad MD May 26, 2017 10:21
== END 2017-05-26 11:46 | disposition home or self-care (01) ==
LOC: NEPE 21:26 → NEDA 05-25 01:47 → HCPC 05-25 02:56
PROVIDERS: ADMIT Hospitalist; ATTEND Hospitalist
DX: K52.9 Noninfective gastroenteritis and colitis, unspecified (principal); K64.9 Unspecified hemorrhoids; R11.2 Nausea with vomiting, unspecified; R00.1 Bradycardia, unspecified; R42 Dizziness and giddiness; R51 Headache; R06.02 Shortness of breath; Z23 Encounter for immunization; Z72.0 Tobacco use
CPT/HCPCS: 71046; 80048; 80053; 80307; 82550; 82552; 84484; 85025; 90471; 90472; 90686; 90732; 93005; 93306; 96361; 96372; 96374; 96375; 99285; C9113; G0378; J2405; J2765; J7030; G0008; G0009; Q2038